=== PATIENT | female | born 1980 | race Caucasian/White ===

== ENCOUNTER 2017-04-29 18:24 | Emergency (ER) | payer OTHER ==
[2017-04-29 18:32] VITALS: BP 134/87
--- NOTE | 2017-04-29 18:50 | EDM.PDOC ---
ED HPI GENERAL MEDICAL PROBLEM - General Chief Complaint: Laceration Stated Complaint: L THUMB LAC Time Seen by Provider: 04/29/17 18:37 Source of Information: Reports: Patient History Limitations: Reports: No Limitations - History of Present Illness INITIAL COMMENTS - FREE TEXT/NARRATIVE: 37 y/o F with L thumb laceration. 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 Washed it at work. Moderate bleeding, now resolved. Mild pain. No additional injury. No numbness/weakness. She is R hand dominant. Left Hand Pain Score (Numeric/FACES): 3 - Related Data Allergies Allergy/AdvReac Type Severity Reaction Status Date / Time Penicillins Allergy Hives Verified 04/29/17 18:32 Home Meds: Home Meds . [No Known Home Meds] 04/29/17 [History] Past Medical History - Past Surgical History Female Surgical History: Reports: Section, Hysterectomy Social & Family History - Family History Family Medical History: Noncontributory - Tobacco Use Smoking Status *Q: Current Every Day Smoker Years of Tobacco use: 12 Packs/Tins Daily: 1 - Caffeine Use Caffeine Use: Reports: Coffee, Soda, Tea - Recreational Drug Use Recreational Drug Use: No ED ROS GENERAL - Review of Systems Review Of Systems: See Below Constitutional: Reports: No Symptoms Skin: Reports: Wound Neurological: Denies: Numbness Hematologic/Lymphatic: Denies: Easy Bleeding ED EXAM, SKIN/RASH Exam: See Below Exam Limited By: No Limitations General Appearance: Alert, WD/WN, No Apparent Distress Eye Exam: Bilateral Eye: Normal Inspection Ears: Normal External Exam Nose: Normal Inspection Throat/Mouth: Normal Inspection, Normal Voice Head: Atraumatic, Normocephalic Neck: Normal Inspection Respiratory/Chest: No Respiratory Distress Extremities: Other (L thumb: approx 2.5 cm laceration on palmar surface of thumb , linear, extends from distal thumb across PIP joint, subcutaneous, well approximated, no foreign material, distal motor/sensation intact, no bleeding, clean) Neurological: Alert, Oriented Psychiatric: Normal Affect, Normal Mood Skin: Warm, Dry ED SKIN PROCEDURES - Laceration/Wound Repair Left Middle Anterior Hand Lac/Wound length In cm: 2.5 Appearance: Subcutaneous, Clean Distal NVT: Neuro & Vascular Intact, No Tendon Injury Exploration/Debridement/Repair: Wound Explored, In a Bloodless Field, Explored to Base, No Foreign Material Found Closed with: Wound Adhesive, Dermabond, Steri-Strips Drain Placement: No Sterile Dressing Applied: Provider Tetanus Status Addressed: Yes Complications: No Course - Vital Signs Last Recorded V/S: Last Vital Signs Temp 36.7 C 04/29/17 18:29 Pulse 84 04/29/17 18:29 Resp 16 04/29/17 18:29 BP 134/87 04/29/17 18:29 Pulse Ox 99 04/29/17 18:29 Departure - Departure Time of Disposition: 19:15 Disposition: Home, Self-Care 01 Clinical Impression: Laceration of left thumb without complication Qualifiers: Encounter type: initial encounter Qualified Code(s): S61.012A - Laceration without foreign body of left thumb without damage to nail, initial encounter - Discharge Information Referrals: PCP,None [Primary Care Provider] - Additional Instructions: Keep wound clean and dry. Starting tomorrow night, ok to remove dressing and get wound wet in the shower. Don't soak the wound. Then dry and cover with a bandage. Leave strips in place until they fall off. Return to the Emergency Department for any sign of infection, including worsening pain, redness, swelling, or pus under the wound.
[2017-04-29] MEDS ORDERED: Diphtheria,Pertussis(Acell),Tetanus Vaccine 0.5 ML SDV IM ONE (19:05)
== END 2017-04-29 19:34 | disposition home or self-care (01) ==
LOC: JD.ED 18:24
DX: S61.012A Laceration without foreign body of left thumb without damage to nail, initial encounter (principal); F17.210 Nicotine dependence, cigarettes, uncomplicated; Z23 Encounter for immunization; Z88.0 Allergy status to penicillin; Z90.710 Acquired absence of both cervix and uterus; W27.8XXA Contact with other nonpowered hand tool, initial encounter; Y99.0 Civilian activity done for income or pay
CPT/HCPCS: 12001; 90471; 90715; 99283-25

== ENCOUNTER 2018-02-11 23:12 | Emergency (ER) | payer OTHER ==
[2018-02-11 23:23] VITALS: BP 143/89
--- NOTE | 2018-02-12 08:08 | CR ---
Right foot: Four views of the right foot were obtained. Comparison: No previous study. Plantar spur is seen. Joint spaces are preserved. No fracture, dislocation or other bony abnormality is seen. Impression: 1. Plantar spur. No additional abnormality is identified on right foot exam. Diagnostic code #2
== END 2018-02-12 01:12 | disposition left against medical advice (07) ==
LOC: JD.ED 23:12
DX: Z53.21 Procedure and treatment not carried out due to patient leaving prior to being seen by health care provider (principal)
CPT/HCPCS: 73630-26-RT; 73630-RT

== ENCOUNTER 2018-05-02 20:59 | Emergency (ER) | payer SELFPAY ==
[2018-05-02 21:27] VITALS: BP 156/117
[2018-05-02] MEDS ORDERED: Sodium Chloride 0.9% 10 ML Syringe FLUSH PRN (22:27)
[2018-05-02] MEDS ORDERED: Ondansetron 4 MG/2 ML SDV IVPUSH ONE (22:27)
[2018-05-02] MEDS ORDERED: HYDROmorphone 0.5 MG/0.5 ML SYRINGE IVPUSH ONE (22:27)
--- NOTE | 2018-05-02 22:37 | EDM.PDOC ---
ED HPI GENERAL MEDICAL PROBLEM - General Chief Complaint: Headache Stated Complaint: REALLY BAD HEADACHE Time Seen by Provider: 05/02/18 22:13 Source of Information: Reports: Patient History Limitations: Reports: No Limitations - History of Present Illness INITIAL COMMENTS - FREE TEXT/NARRATIVE: 38-year-old female presents for evaluation and treatment of a headache. Patient reports she's had for headaches like this intermittently for the last 4 days. She states that they come on suddenly. She did have one around 0300 this morning. Reports a sudden onset. She took about 7 or 8 Excedrin which only dulled the pain but did not completely relieve it. She states again about 30 minutes prior to arrival in the ER she had a sudden onset of the severe headache. Rates the pain as a constant pain is states is a 10 out of 10. She reports associated symptoms of malaise, nausea and weakness. No vomiting, photophobia, phonophobia, numbness or tingling extremities. She denies any confusion, lightheadedness, dizziness or syncope. Denies any recent fevers, chills, cough or cold symptoms. She reports sitting seems to make the pain worse and it is actually better when she is up and moving around. Patient has a history of migraines. She reports after having her hysterectomy 3 years ago; after her migraine significantly improved. She states that this pain does not feel similar to migraine she's had in the past. She's never had any imaging done of her head. No primary care provider. Duration: Day(s): (4), Intermittent Headache Pain Score (Numeric/FACES): 10 - Related Data Allergies Allergy/AdvReac Type Severity Reaction Status Date / Time Penicillins Allergy Hives Verified 05/02/18 21:27 Home Meds: Home Meds Ibuprofen 200 mg PO ONCALL PRN 02/11/18 [History] Past Medical History - Past Surgical History Female Surgical History: Reports: Section, Hysterectomy Social & Family History - Family History Family Medical History: Noncontributory - Tobacco Use Smoking Status *Q: Current Every Day Smoker Years of Tobacco use: 1 Packs/Tins Daily: 13 - Caffeine Use Caffeine Use: Reports: Coffee, Tea - Recreational Drug Use Recreational Drug Use: No ED ROS GENERAL - Review of Systems Review Of Systems: See Below Constitutional: Reports: Malaise (feels strongly that something is wrong). Denies: Fever, Chills HEENT: Denies: Ear Pain, Throat Pain, Vision Change Respiratory: Denies: Cough GI/Abdominal: Reports: Nausea. Denies: Vomiting Neurological: Reports: Headache. Denies: Confusion, Dizziness, Numbness, Syncope, Tingling, Difficulty Walking, Gait Disturbance - Physical Exam Exam: See Below Exam Limited By: No Limitations General Appearance: Alert, WD/WN, Anxious, Mild Distress Eye Exam: Bilateral Eye: EOMI, Normal Inspection, PERRL Ears: Normal External Exam, Normal Canal, Hearing Grossly Normal, Normal TMs Nose: Normal Inspection Throat/Mouth: Normal Inspection, Normal Lips, Normal Oropharynx, Normal Voice, No Airway Compromise Head Exam: Atraumatic, Normocephalic Neck: Normal Inspection, Supple, Non-Tender, Full Range of Motion Respiratory/Chest: No Respiratory Distress, Lungs Clear, Normal Breath Sounds Cardiovascular: Normal Peripheral Pulses, Regular Rate, Rhythm, No Murmur Neuro Exam (Abbreviated): Alert, Oriented, CN II-XII Intact, Normal Cognition, Other (Cane Flume Watchman strength 5 out of 5 bilaterally, dorsiflexion plantar flexion 5 out of 5 bilaterally. Normal [id number] testing. Normal [id number] testing.) Psychiatric: Normal Affect, Normal Mood, Anxious Skin Exam: Warm, Dry, Normal Color Course - Vital Signs Last Recorded V/S: Last Vital Signs Temp 97.2 F 05/02/18 21:23 Pulse 93 05/02/18 21:23 Resp 18 05/02/18 21:23 BP 156/117 H 05/02/18 21:23 Pulse Ox 98 05/02/18 21:23 - Orders/Labs/Meds Orders: Active Orders 24 hr Category Date Time Status Peripheral IV Care [RC] . DIRECTED Care 05/02/18 22:27 Active CTA Head W & W/O Contrast [Ang Head] [CT] Stat Exams 05/03/18 00:02 Taken Head wo Cont [CT] Stat Exams 05/02/18 22:27 Taken Peripheral IV Insertion Adult [OM.PC] Routine Oth 05/02/18 22:27 Ordered Meds: Medications Discontinued Medications Generic Name Dose Route Start Last Admin Trade Name Freq PRN Reason Stop Dose Admin Acetaminophen 975 mg 05/03/18 00:03 05/03/18 00:58 Tylenol PO 05/03/18 00:04 975 mg NOW STA Administration Diphenhydramine HCl 50 mg 05/03/18 00:04 05/03/18 00:58 Benadryl IVPUSH 05/03/18 00:05 50 mg ONETIME ONE Administration Hydromorphone HCl 0.5 mg 05/02/18 22:27 05/02/18 22:46 Dilaudid IVPUSH 05/02/18 22:28 0.5 mg ONETIME ONE Administration Sodium Chloride 1,000 mls @ 999 mls/hr 05/03/18 00:04 05/03/18 00:59 Normal Saline IV 05/03/18 01:04 999 mls/hr ONETIME ONE Administration Sodium Chloride 100 mls @ 4 mls/sec 05/03/18 00:30 05/03/18 00:25 Normal Saline IV 4 mls/sec ASDIRECTED JOEY Administration Iopamidol 100 ml 05/03/18 00:23 05/03/18 00:25 Isovue-370 (76%) IVPUSH 05/03/18 00:24 100 ml ONETIME ONE Administration Ketorolac Tromethamine 15 mg 05/03/18 01:34 05/03/18 01:54 Toradol IVPUSH 05/03/18 01:35 15 mg ONETIME ONE Administration Lorazepam 0.5 mg 05/03/18 01:12 05/03/18 01:19 Ativan IVPUSH 05/03/18 01:13 0.5 mg ONETIME ONE Administration Ondansetron HCl 4 mg 05/02/18 22:27 05/02/18 22:46 Zofran IVPUSH 05/02/18 22:28 4 mg ONETIME ONE Administration Sodium Chloride 10 ml 05/02/18 22:27 05/02/18 22:47 Saline Flush FLUSH 10 ml ASDIRECTED PRN Administration Keep Vein Open - Radiology Interpretation Free Text/Narrative:: CT of the head without IV contrast impression per [facility]: negative. No acute intracranial process. CTA of the head with IV contrast impression pre [facility]: No acute findings - Re-Assessments/Exams Free Text/Narrative Re-Assessment/Exam: 05/03/18 00:[address] Singer. Recommended considering CTA head to rule out aneurism if patient continues to complain of OLMOS. Dr. Singer has reviewed CT head without, agrees no acute bleed. I reviewed the imaging with the patient. She reports no her relief with IV Dilaudid is requesting Tylenol for pain. Order by mouth Tylenol as well as IV Benadryl per migraine protocol. Offered CTA to rule out aneurysm. She is very concerned that there is something going on. Her neuro exam is normal. Ordered CTA to rule out aneurysm. 05/03/18 01:35 Reviewed the CTA results with the patient. She is still complaining of a headache despite being very sleepy at this time. She barely opens her eyes when I talk with her. I'll give her some Toradol for pain and plan to discharge her she is not. She is in no acute distress. Discharge instructions as documented. Departure - Departure Time of Disposition: 01:36 Disposition: Home, Self-Care 01 Condition: Fair Clinical Impression: Migraine - Discharge Information *PRESCRIPTION DRUG MONITORING PROGRAM REVIEWED*: No *COPY OF PRESCRIPTION DRUG MONITORING REPORT IN PATIENT REMINGTON: No Instructions: Migraine Headache, [id number] Referrals: PCP,None [Primary Care Provider] - Nelida Vargas PA-C [Physician [facility]] - Forms: ED Department Discharge Additional Instructions: go home and rest in dark quiet room. Make sure you are drinking plenty of fluids. May take [id number] Tylenol, Motrin or Excedrin as needed for migraine relief. Recommend keeping a migraine journal to help identify triggers if you continue to have problems with migraines. Follow-up with family medicine if you continue to have migraines for further medication management. Recommend Dr. Recinos or Alexandrea Vargas at the [facility]. Call [phone] to schedule these providers. Please return to the ER if your symptoms change or worsen. - My Orders Last 24 Hours: My Active Orders 05/02/18 22:27 Peripheral IV Care [RC] . DIRECTED Head wo Cont [CT] Stat Peripheral IV Insertion Adult [OM.PC] Routine 05/03/18 00:02 CTA Head W & W/O Contrast [Ang Head] [CT] Stat - Assessment/Plan Last 24 Hours: My Active Orders 05/02/18 22:27 Peripheral IV Care [RC] . DIRECTED Head wo Cont [CT] Stat Peripheral IV Insertion Adult [OM.PC] Routine 05/03/18 00:02 CTA Head W & W/O Contrast [Ang Head] [CT] Stat
[2018-05-03] MEDS ORDERED: Acetaminophen 325 MG Tab PO STA (00:03)
[2018-05-03] MEDS ORDERED: Sodium Chloride 0.9% 1,000 ML IV ONE (00:04)
[2018-05-03] MEDS ORDERED: diphenhydrAMINE 50 MG/ML SDV IVPUSH ONE (00:04)
[2018-05-03] MEDS ORDERED: Iopamidol 755 Mg/ML 100 ML Bottle IVPUSH ONE (00:23)
[2018-05-03] MEDS ORDERED: Sodium Chloride 0.9% 100 ML IV SCH (00:30)
[2018-05-03] MEDS ORDERED: LORazepam 2 MG/ML SDV IVPUSH ONE (01:12)
[2018-05-03] MEDS ORDERED: Ketorolac 15 MG/ML SDV IVPUSH ONE (01:34)
--- NOTE | 2018-05-03 11:47 | CT ---
Head CT Technique: Multiple axial sections through the brain were obtained. Intravenous contrast was not utilized. Comparison: No prior intracranial imaging is available. Findings: Ventricles along with basal cisterns and sulci over the convexities are within normal limits for the patient's age. No abnormal parenchymal densities are seen. No evidence of intracranial hemorrhage. No midline shift or mass effect is seen. Bone window settings were reviewed which show the visualized sinuses to appear clear. No acute calvarial abnormality is seen. Impression: 1. Nothing acute is appreciated on noncontrast head CT exam. Diagnostic code #1 I agree with preliminary report issued by [facility] ([facility] report finalized on 05/03/18, 12:44 AM Central Time)
--- NOTE | 2018-05-03 11:58 | CT ---
CT angiogram of brain Technique: Contrast administration performed and imaging obtained to the brain. Reconstructed MIP images were obtained. Findings: Distal vertebral arteries are patent. Basilar artery is patent. Posterior cerebral arteries are patent. Distal internal carotid arteries and carotid siphon are patent. Middle and anterior cerebral arteries are patent. No focal stenosis is seen. No aneurysm is definitely appreciated. Impression: 1. No abnormality seen on CT study of the brain. Note: Please note that MR angiogram study is more accurate for aneurysm evaluation due to decreased artifact from bone as seen on CT study. Diagnostic code #1 I agree with preliminary report issued by [facility] ([facility] report finalized on 05/03/18, at 2:16 AM Central Time)
== END 2018-05-03 02:33 | disposition home or self-care (01) ==
LOC: JD.ED 20:59
DX: G43.909 Migraine, unspecified, not intractable, without status migrainosus (principal); F17.210 Nicotine dependence, cigarettes, uncomplicated; Z88.0 Allergy status to penicillin
CPT/HCPCS: 70450; 70496; 96361; 96374; 96375; 99284; A9270; J1170; J1200; J1885; J2060; J2405; J7030; J7040; J7050; Q9967